=== PATIENT | female | born 1975 | race Caucasian/White ===

== ENCOUNTER 2022-02-05 20:07 | Emergency (ER) | payer OTHER ==
[~2022-02-05] VITALS: Ht 170.2 cm; Wt 75.3 kg
[~2022-02-05 20:07] MED LIST: NEURONTIN300 MG PO; OMEPRAZOLE20 MG PO
== END 2022-02-05 23:15 | disposition home or self-care (01) ==
LOC: ED 20:07
DX: S22.42XA Multiple fractures of ribs, left side, initial encounter for closed fracture (principal); Z79.899 Other long term (current) drug therapy; W18.2XXA Fall in (into) shower or empty bathtub, initial encounter
CPT/HCPCS: 71046; 74176; 84703; 99284-25; A9270

== ENCOUNTER 2024-07-02 16:39 | Emergency (ER) | payer OTHER ==
[~2024-07-02] VITALS: Ht 170.2 cm; Wt 72.7 kg
[2024-07-02] MEDS ORDERED: HYDROmorphone HCL 1 MG/ML SYR IV ONE (17:15)
[2024-07-02] MEDS ORDERED: HYDROmorphone HCL 1 MG/ML SYR IV PRN (18:15)
[2024-07-02] MEDS ORDERED: KETOROLAC TROMETHAMINE 15 MG/ML VIAL IV ONE (18:15)
[2024-07-02 18:24] VITALS: BP 137/88
[2024-07-02] MEDS ORDERED: HYDROCODONE/APAP 10/325 1 TAB PO ONE (19:00)
== END 2024-07-02 19:21 | disposition home or self-care (01) ==
LOC: ED 16:39
DX: S80.01XA Contusion of right knee, initial encounter (principal); Z79.899 Other long term (current) drug therapy; W17.2XXA Fall into hole, initial encounter
CPT/HCPCS: 73560; 73590; 96374; 96375; 99283-25; A9270; J1171; J1885